=== PATIENT | male | born 1960 | race Caucasian/White ===

== ENCOUNTER 2016-12-28 18:53 | Emergency (ER) | payer BC | END 2016-12-28 19:14 | disposition home or self-care (01) | LOC: ER 18:53 | DX: J41.0 Simple chronic bronchitis (principal); J06.9 Acute upper respiratory infection, unspecified; I10 Essential (primary) hypertension; F17.210 Nicotine dependence, cigarettes, uncomplicated; Z98.890 Other specified postprocedural states; Z79.899 Other long term (current) drug therapy ==